=== PATIENT | male | born 1970 | race Caucasian/White ===

== ENCOUNTER 2017-04-05 21:34 | Emergency (ER) | payer OTHER ==
[~2017-04-05] VITALS: Ht 185.4 cm; Wt 99.8 kg
[2017-04-05 21:34] VITALS: BP_SYST 136
--- NOTE | 2017-04-05 21:40 | NUR ---
Patient to ER bed 6 to gown for evaluation. Side rails up.
--- NOTE | 2017-04-05 21:40 | NUR ---
Patient AOx4, ambulatory, presents to ER with complaint of low back pain 12/09. Patient states he was bending over then was unable to straighten up. Patient states no injury to site. No other symptoms or complaints at this time.
--- NOTE | 2017-04-05 22:20 | NUR ---
ER MD Olivier at bedside for medical evaluation.
[2017-04-05] MEDS ORDERED: CYCLOBENZAPRINE HCL 10 MG TABLET (FLEXERIL) PO ONE (22:30)
[2017-04-05] MEDS ORDERED: KETOROLAC TROMETHAMINE 30 MG VIAL IM ONE (22:30)
--- NOTE | 2017-04-05 23:15 | NUR ---
No adverse reactions noted after medication administration. Will continue to monitor.
[2017-04-05] MEDS ORDERED: ACETAMINOPHEN/CODEINE 300 MG-30 MG TABLET PO ONE (23:30)
[2017-04-05 23:58] VITALS: BP_SYST 142
--- NOTE | 2017-04-05 23:58 | NUR ---
Patient given written and verbal discharge instructions and verbalizes understanding. ER MD discussed with patient the results and treatment provided. Patient in stable condition. ID arm band removed. Rx of Flexeril and Ibuprofen given. Patient educated on pain management and to follow up with PMD. Pain Scale 0/10. Opportunity for questions provided and answered.
== END 2017-04-05 23:58 | disposition home or self-care (01) ==
LOC: SED 21:34
DX: S39.012A Strain of muscle, fascia and tendon of lower back, initial encounter (principal); X58.XXXA Exposure to other specified factors, initial encounter; Y93.89 Activity, other specified; Y92.89 Other specified places as the place of occurrence of the external cause; Y99.8 Other external cause status
CPT/HCPCS: 96372; 99283; J1885